=== PATIENT | female | born 1955 | race Caucasian/White ===

== ENCOUNTER → 2020-12-22 14:04 | Outpatient (REF) | payer OTHER, SELFPAY | LOC: ANHLAB 14:04 | PROVIDERS: Visit Provider Nurse Practitioner | DX: D17.39 Benign lipomatous neoplasm of skin and subcutaneous tissue of other sites (principal) | CPT/HCPCS: 88304 ==

== ENCOUNTER 2022-09-12 08:15 | Outpatient (RCR) | payer MEDICARE, OTHER, MEDICAID, SELFPAY ==
--- NOTE | 2022-06-23 12:02 | PTOPEVAL1 ---
Assessment and note entered by Criselda De DPT Evaluation Information Assessment Status Evaluation Subjective Information Pt reports she had an abnormal colonoscopy in November 2021, then had a CT scan which showed a mass coming from her left ovary. Had surgery to remove the 9.5 pound mass. Surgery for hysterectomy and tube removal February 2022. Also reports urinary incontinence that started spring, but was relieved after her surgery for awhile. Has been noticing incontinence again since April 2022. Currently urinates 5-6 times a day, at night 2 times. Denies pain with urination. Incontinence occurs every other day, a few drops typically but may be more. Can hold urine less than a minute on average. Wears pads very infrequently. BM 2 times a day without pain. Pt has never been , diagnosis of endometriosis. Reports no other abdominal surgeries. Pt reports she has tried to limit fluids to avoid incontinence and urgency. Voices worry that she will be incontinent with activities, plans to try to work again starting summer 2022. Previously did not have any incontinence issues. Does not have a history of pain with pap smears. Reported Pain Level Pain Score 0: Self Report Assessment PT Clinical Summary The patient is presenting to skilled therapy with a recent exacerbation of urinary incontinence. She presents with significantly decreased pelvic floor strength and endurance and overall decreased hip and core strength which are contributing to her frequent incontinence and urgency. She will benefit from therapy to address these impairments and safely return to prior level of function. Plan of Care Interventions Hot Pack/Cold Pack,Manual Therapy,Neuro Re- education,Patient/Caregiver Education,Therapeutic Activities,Therapeutic Exercise,Self-Care/Home Management PT Services Indicated Yes Treatment Frequency and 1 time a week for 4 weeks Duration These treatments will address the objective and functional deficits as defined above. The patient will be advanced safely and appropriately in order for the patient to progress towards his/her prior level of function. Additional exercises will be introduced and as well as a comprehensive home exercise program upon discharge, if needed, ?to ensure carryover of functional gains achieved in the clinic. This treatment plan has been reviewed and agreement upon by the patient.
--- NOTE | 2022-07-07 13:45 | PCPTNOTE ---
Pt called and canceled appointment due to a dental procedure
--- NOTE | 2022-07-21 14:35 | PTOPPROG ---
Assessment and note entered by Criselda De DPT Evaluation Information Assessment Status Progress Subjective Information Overall with therapy patient is noticing some improvements. Is waking up less often at night to void and reporting less urgency, not racing down the [place] . Would still like to get to a point where she does not have to wear a pad. Incontinence 4-5 times in the last week. Assessment PT Clinical Summary The patient has made good progress in therapy so far. She reports decreased urgency and is waking up at night less often to void. She demonstrates improved pelvic floor endurance, decreased compensation, and improved LE/core strength. Due to her progress but continued frequent incontinence, she will benefit from further therapy to safely return to prior level of function. Plan of Care Interventions Hot Pack/Cold Pack,Manual Therapy,Neuro Re- education,Patient/Caregiver Education,Therapeutic Activities,Therapeutic Exercise,Self-Care/Home Management PT Services Indicated Yes Treatment Frequency and 1 time a week for 4 weeks Duration These treatments will address the objective and functional deficits as defined above. The patient will be advanced safely and appropriately in order for the patient to progress towards his/her prior level of function. Additional exercises will be introduced and as well as a comprehensive home exercise program upon discharge, if needed, ?to ensure carryover of functional gains achieved in the clinic. This treatment plan has been reviewed and agreement upon by the patient.
--- NOTE | 2022-08-18 13:15 | PCPTNOTE ---
Patient called and cancelled appointment- lost keys at the [facility]. Rescheduled to next week
--- NOTE | 2022-08-30 10:45 | PTOPREEVAL ---
Assessment and note entered by Criselda De DPT Evaluation Information Assessment Status Re-evaluation Subjective Information Pt reports some improvements, 3-4 instances of incontinence per week recently. Still having a lot of urgency. Pt also arrives to therapy with a referral for decreased strength, endurance, and mobility. She reports difficulty with walking and transfers, feels a hesitation and that it takes longer to do all the things she used to. Reports no falls. States all her difficulty walking started after her operation to remove a mass on her ovary in March 2022 and prior to that was walking normally . Reported Pain Level Pain Score 0: Self Report Assessment PT Clinical Summary The patient has made some progress in pelvic floor therapy and continues to report decreased instances of incontinence per week. She continues to have weakness and will benefit from further therapy to reduce incontinence. She also is being evaluated for decreased mobility, endurance, and strength this visit. She reports more difficulty with walking and transfers following her surgery and displays decreased lower extremity strength and gait impairments. She will benefit from addressing these impairments to maintain safety and improve overall function. Plan of Care Interventions Gait Training,Manual Therapy,Neuro Re-education, Patient/Caregiver Education,Therapeutic Activities, Therapeutic Exercise,Self-Care/Home Management PT Services Indicated Yes Treatment Frequency and 2 times a week for 4 weeks to address both Duration endurance/mobility and pelvic floor therapy These treatments will address the objective and functional deficits as defined above. The patient will be advanced safely and appropriately in order for the patient to progress towards his/her prior level of function. Additional exercises will be introduced and as well as a comprehensive home exercise program upon discharge, if needed, ?to ensure carryover of functional gains achieved in the clinic. This treatment plan has been reviewed and agreement upon by the patient.
--- NOTE | 2022-09-14 13:02 | PCPTNOTE ---
This treatment is being continued on visit number [id number]. Please see documentation on both accounts to view progress. Completed interventions, outcomes, and problems have been marked as Inactive to facilitate the copying of the Care plan routine for recurring accounts.
== END 2022-09-14 11:18 | disposition home or self-care (01) ==
LOC: ANHPT 08:15
DX: N39.41 Urge incontinence (principal); R53.83 Other fatigue; R53.81 Other malaise
CPT/HCPCS: 97110; 97112; 97161; 97162; 97530

== ENCOUNTER 2022-11-24 09:45 | Outpatient (RCR) | payer MEDICARE, OTHER, MEDICAID, SELFPAY ==
--- NOTE | 2022-09-14 13:04 | PCPTNOTE ---
The treatment documented on this account is a continuation of the treatment documented on visit number [id number]. Please see documentation on both accounts to view progress. The Plan of Care has been transitioned and updated within the new V#. I have addressed and agree with the discipline specific Problems, Interventions, and Goals for the current certification period. Completed interventions, outcomes, and problems have been marked as Inactive to facilitate the copying of the Care plan routine for recurring accounts.
--- NOTE | 2022-09-16 13:52 | PCPTNOTE ---
Called patient's referring provider Desi Lua NP and discussed concerns over patient's balance, gait, and difficulty with transfers. Her office plans to follow up with Isidra.
--- NOTE | 2022-09-20 09:58 | PCPTNOTE ---
Pt did not show for her appt this morning. BREAKFAST HOST called and left message with the dates and times of her next two visits coming up.
--- NOTE | 2022-09-29 09:45 | PTOPPROG ---
Assessment and note entered by Criselda De DPT Evaluation Information Assessment Status Progress Subjective Information Pt reports she has been in the process of seeing other MD's and getting other testing done. States my labs are all messed up and they will be doing a thyroid ultrasound soon. She was also diagnosed with pneumonia last week and is still overall not feeling well. Pt does report she has a better awareness of her posture and gait pattern now. Continues to have a lot of difficulty standing and initiating gait. No falls. Pt reports she has had 3-4 instances of incontinence in the last week. The volume is typically her full bladder. Has also been noticing some word finding difficulties. 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 Assessment PT Clinical Summary The patient has made some progress in therapy. She reports more awareness of her posture and gait pattern and she demonstrates improved LE strength, improved 5 time sit to stand time, and improved ability to stop gait after the 2 minute walk test. She continues to report the same frequency of incontinence and demonstrates decreased pelvic floor strength. As this may be related to her recent diagnosis of pneumonia, it is my professional opinion she will benefit from continued pelvic floor therapy in addition to overall strength, mobility and balance to improve her safety and return to prior level of function. Plan of Care Interventions Gait Training,Manual Therapy,Neuro Re-education, Patient/Caregiver Education,Therapeutic Activities, Therapeutic Exercise,Self-Care/Home Management PT Services Indicated Yes Treatment Frequency and 2 times a week for 4 weeks Duration These treatments will address the objective and functional deficits as defined above. The patient will be advanced safely and appropriately in order for the patient to progress towards his/her prior level of function. Additional exercises will be introduced and as well as a comprehensive home exercise program upon discharge, if needed, ?to ensure carryover of functional gains achieved in the clinic. This treatment plan has been reviewed and agreement upon by the patient.
--- NOTE | 2022-10-28 09:26 | PTOPPROG ---
Assessment and note entered by Criselda De DPT Evaluation Information Assessment Status Progress Subjective Information Pt reports no incontinence in the last 2 weeks. Still reports a little urgency upon waking in the morning but much better than it was. Has moved down to using a liner in case of leakage. Also thinks her overall mobility and balance has improved, still intends to go back to work at some point. Assessment PT Clinical Summary The patient has made excellent progress in therapy and reports no incontinence in the last 2 weeks. She also reports greatly improved urgency and demonstrates improved pelvic floor strength. She demonstrates some gait and LE strength improvements but continues to have weakness and gait impairments. She will benefit from further therapy to focus on her strength and balance in order to fully return to prior level including working. Plan of Care Interventions Gait Training,Manual Therapy,Neuro Re-education, Patient/Caregiver Education,Therapeutic Activities, Therapeutic Exercise,Self-Care/Home Management PT Services Indicated Yes Treatment Frequency and 1 time a week for 4 weeks Duration These treatments will address the objective and functional deficits as defined above. The patient will be advanced safely and appropriately in order for the patient to progress towards his/her prior level of function. Additional exercises will be introduced and as well as a comprehensive home exercise program upon discharge, if needed, ?to ensure carryover of functional gains achieved in the clinic. This treatment plan has been reviewed and agreement upon by the patient.
--- NOTE | 2022-11-24 10:19 | PTOPDC ---
Assessment and note entered by Criselda De DPT Evaluation Information Assessment Status Discharge Subjective Information Pt reports she has been feeling more confident with her walking and mobility. Has been doing activities at home. No falls. Reported Pain Level Pain Score 0: Self Report Assessment PT Clinical Summary The patient has made good progress overall in therapy. She demonstrates improved LE strength and has been able to perform ADL's without limitation . She demonstrates approximately the same 2 minute walk test and 5 time sit to stand score this visit. Due to her overall progress, plan for discharge this visit. She has been educated to continue HEP and follow up with MD and/or PT as needed. Plan of Care PT Services Indicated No
== END 2022-11-24 14:47 | disposition home or self-care (01) ==
LOC: ANHPT 09:45
DX: N39.41 Urge incontinence (principal); R53.83 Other fatigue; R53.81 Other malaise; R53.1 Weakness; R68.89 Other general symptoms and signs; Z74.09 Other reduced mobility
CPT/HCPCS: 97110; 97112; 97116; 97530

== ENCOUNTER 2023-08-24 08:00 | Outpatient (RCR) | payer MEDICARE, SELFPAY ==
--- NOTE | 2023-05-31 10:03 | OPREHPOC ---
Outpatient Therapy Plan of Care This is a Multidisciplinary Plan of Care that may contain components documented by all disciplines (PT, OT, and ST.) PT Problem 1 PT Problem #1 Knowledge Deficit PT Goal 1 Goal 1* indep with HEP PT Problem 2 PT Problem #2 Impaired Strength PT Goal 1 Goal increase LE strength, to improve walking and dynamic balance: 1* pt perform 20 reps of mat R and L LE strengthening exercises 2* good control of LE motion with exercises PT Problem 3 PT Problem #3 Impaired Functional Mobil PT Goal 1 Goal 1* 2 minute walking test distance of 420' 2* Tinetti balance score of 23/28 to improve gait skill 3* pt report no falls
--- NOTE | 2023-05-31 10:03 | PTOPEVAL1 ---
Assessment and note entered by Lizeth Pratt, PT Evaluation Information Assessment Status Evaluation Diagnosis ataxia of legs, altered gait Onset October 2022 Subjective Information is having work up at [facility] for workup for neurological issues; to [facility] Jun [facility]; delayed response to commands, have a delay when she hears something to be able to move and do it; after the thyroid surgery last week, symptoms of ataxia are less, no longer using the cane; have not had any falls, but careful and fearful of falling; ACTIVITY: live alone in 2 story home, indep and feel comfortable getting around her home; is not doing any leg exercises at home; GOAL: be able to stand and walk without hesitation to move and walk; be stronger and be able to walk more; Reported Pain Level Pain Score 0: Self Report Assessment PT Clinical Summary Isidra has the diagnosis of ataxia and LE debility. She is under the care of neurology and is going to have an evaluation [facility] next week. She lives alone and reports gradual decline in her ability to walk and move around--delayed ability to move. She had a thyroidectomy last week and reports she has improved with walking since surgery. She has not had any falls, but is careful and fears falling. With the evaluation, she has decreased strength of R and L LE, with poor ability to perform sitting ankle circles, 2 minute walking test distance of 385', with report of fatigue; Tinetti balance score of 18/28; TUG was 10 sec=normal; poor walking pattern with knee and hip flexion and flat foot pattern. Skilled PT services are indicated to increase LE strength, gait and balance skills, to improve mobility and safety. To include education for HEP and safety techniques. Plan of Care Interventions Gait Training,Neuro Re-education,Patient Education,Therapeutic Activities,Therapeutic Exercise
--- NOTE | 2023-06-08 09:08 | PCPTNOTE ---
Patient called to reschedule, unable to make appointment time.
--- NOTE | 2023-07-05 10:04 | OPREHPOC ---
Outpatient Therapy Plan of Care This is a Multidisciplinary Plan of Care that may contain components documented by all disciplines (PT, OT, and ST.) PT Problem 1 PT Problem #1 Knowledge Deficit PT Goal 1 Goal 1* indep with HEP Progress Met Comment 07-05-23 progress met goal continue towards goal PT Problem 2 PT Problem #2 Impaired Strength PT Goal 1 Goal increase LE strength, to improve walking and dynamic balance: 1* pt perform 20 reps of mat R and L LE strengthening exercises 2* good control of LE motion with exercises Progress Partially Met Comment 07-05-23 progress partially met goals--#1 except side lying hip abduction L and #2 with supine but not side lying exercises continue towards goal NEW GOALS: 1* side lying hip abduction R x 20 reps with good control of knee in extension 2* side lying hip abduction L x 20 reps with good control of knee in extension 3* single leg standing 10 seconds R 4* single leg standing 10 seconds L PT Problem 3 PT Problem #3 Impaired Functional Mobil PT Goal 1 Goal 1* 2 minute walking test distance of 420' 2* Tinetti balance score of 23/28 to improve gait skill 3* pt report no falls Progress Partially Met Comment 07-05-23 progress met goal 3 continue towards goals ADD: #4 Allen balance score of 48/56
--- NOTE | 2023-07-05 10:05 | PTOPPROG ---
Assessment and note entered by Lizeth Pratt, PT Progress Information Assessment Status progress Diagnosis ataxia of legs, altered gait Onset October 2022 Subjective Information feel like still have troubles with balance; have not had any falls; use the cane when have distances to walk; [facility] for evaluation; Assessment PT Clinical Summary Isidra has received 11 PT sessions. Compared to the initial evaluation: gait pattern has improved when she is not fatigued--able to take larger steps and heel strike, but at the end of the 2 minute walking test she had flat foot pattern, shuffling and festering gait with loss of balance and reaching for items to hold onto for balance; 2 minute walking test distance was less from 385' to 360'; Tinetti balance/ gait score increased one from 18 to 19/28= high risk for falls; Allen balance score is 43/56; she has been educated on HEP and gait pattern and safety; The goals were partially met. Continue PT treatment to further increase LE strength, gait and balance skills, with progression of HEP. Plan of Care Interventions Gait Training,Neuro Re-education,Patient Education,Therapeutic Activities,Therapeutic Exercise PT Services Indicated Yes Treatment Frequency and 2x/wk for 8 visits Duration These treatments will address the objective and functional deficits as defined above. The patient will be advanced safely and appropriately in order for the patient to progress towards his/her prior level of function. Additional exercises will be introduced and as well as a comprehensive home exercise program upon discharge, if needed, ?to ensure carryover of functional gains achieved in the clinic. This treatment plan has been reviewed and agreement upon by the patient.
--- NOTE | 2023-07-27 08:17 | PCPTNOTE ---
pt cancelled today having mixed up appt times.
--- NOTE | 2023-08-24 09:00 | PTOPDC ---
Assessment and note entered by Lizeth Pratt, PT Discharge Information Assessment Status Discharge Diagnosis ataxia of legs, altered gait Onset October 2022 Subjective Information had some issues when stepping up a curb, did not fall, but went forward onto my arms, hands hit the ground; use cane sometimes; Reported Pain Level Pain Score 0: Self Report Assessment PT Clinical Summary Isidra has received a total of 19 PT sessions. Compared to the last progress report: increase R and L hip abduction strength; Tinetti improved from 19 to 21/26; Allen balance score from 43 to 50/56; 2 minute walking test distance increased 10' gait pattern continues to be with flat foot pattern, festering gait; education completed for HEP. The goals were partially met. Discharge PT services. She is to continue with her home exercise program. Plan of Care PT Services Indicated No
== END 2023-08-24 11:08 | disposition home or self-care (01) ==
LOC: ANHPT 08:00
DX: R26.0 Ataxic gait (principal); R26.9 Unspecified abnormalities of gait and mobility; R53.81 Other malaise
CPT/HCPCS: 97110; 97112; 97116; 97161; 97530